=== PATIENT | male | born 1950 | race Caucasian/White ===

== ENCOUNTER 2021-09-18 18:21 | Inpatient (IN) | payer MEDICARE, BC ==
[~2021-09-18] VITALS: Ht 185.4 cm; Wt 136.1 kg
[2021-09-18] MEDS ORDERED: LUBI8CAP PO (18:50)
[2021-09-18] MEDS ORDERED: LOSA100T31 PO (18:50)
[2021-09-18] MEDS ORDERED: TERA10CA4 PO (18:50)
[2021-09-18] MEDS ORDERED: METO-357 PO (18:50)
--- NOTE | 2021-09-18 19:09 | NUR ---
REPORT GIVEN TO LOU CAROLINA.
[2021-09-18 19:19] LABS: HEMATOCRIT 38.5 % (36.7-47.1); MEAN CORPUSCULAR HEMOGLOBIN 28.4 uug (23.8-33.4); MEAN CORPUSCULAR VOLUME 83.6 fL (73.0-96.2); PLATELET COUNT (AUTO) 243 K/uL (152-348)
[2021-09-18 19:21] LABS: POTASSIUM 3.1 mmol/L (3.5-5.1)
[2021-09-18 19:34] LABS: BILIRUBIN,DIRECT 0.2 mg/dL (0.0-0.2); BILIRUBIN,TOTAL 0.6 mg/dL (0.2-1.0); TOTAL PROTEIN, SERUM 7.8 g/dL (6.4-8.2)
[2021-09-18 19:53] LABS: *BILIRUBIN,URIN NEGATIVE (NEGATIVE); *BLOOD, URINE 2+ (NEGATIVE); *COLOR,URINE YELLOW (YELLOW); *KETONES,URINE NEGATIVE (NEGATIVE); *UROBILINOGEN,URINE 0.2 E.U./dl (NORMAL); LEUKOCYTE ESTERASE ,URINE 1+ (NEGATIVE); NITRITE, URINE NEGATIVE (NEGATIVE); UGLUCOSE NEGATIVE (NEGATIVE)
[2021-09-18 19:57] LABS: *CLARITY,URINE TURBID (CLEAR)
[2021-09-18 20:00] LABS: BACTERIA,URINE MANY /HPF (NONE SEEN); SQUAMOUS EPITHELIAL CELL,UR MODERATE /HPF (NONE SEEN); WBC,URINE 80-100 /HPF (0-3)
--- NOTE | 2021-09-18 20:23 | NUR ---
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 WAITING FOR DR COLLIER TO CALL BACK.
--- NOTE | 2021-09-18 20:32 | NUR ---
DR WASHINGTON SPOKE WITH DR COLLIER WHO ACCEPT PATIENT TO TELE.
[2021-09-18] MEDS ORDERED: ACETAMINOPHEN ES 500 MG TABLET ONE (20:44)
[2021-09-18] MEDS ORDERED: ONDANSETRON 4 MG/2 ML VIAL ONE (20:44)
[2021-09-18] MEDS ORDERED: PIPERACILLIN/TAZOBACTAM/D5W 50 ML IV ONE (20:45)
[2021-09-18] MEDS ORDERED: PIPERACILLIN SODIUM/TAZOBACTAM 3.375 G in IV DEXTROSE 5% 50 ML IV ONE (20:45)
[2021-09-18] MEDS ORDERED: IV NS 1000 ML 1,000 ML IV ONE (20:45)
[2021-09-18] MEDS ORDERED: ACETAMINOPHEN ES 500 MG TABLET PO ONE (20:45)
[2021-09-18] MEDS ORDERED: ONDANSETRON 4 MG/2 ML VIAL IV ONE (20:45)
[2021-09-18] MEDS ORDERED: POTASSIUM CHLORIDE 20 MEQ TAB.PRT.SR PO ONE (21:00)
--- NOTE | 2021-09-18 21:15 | NUR ---
EKG ALREADY DONE EARLIER DR WASHINGTON D/C'ED 2ND EKG ORDER.
--- NOTE | 2021-09-18 22:08 | NUR ---
PATIENT HAD 66 TABLET OF PERCOCET IN HIS POSSESSION. PLACED IN MEDICATION ENVELOPE BAG ([id number]) CO CHECK WITH JERRI CAROLINA.
--- NOTE | 2021-09-18 22:14 | NUR ---
Admitted patient to Tele [facility].AALox4 .Dx of pyelonephritis .Denies abdominal pain at this time.On Ra at 98%.Denies SOB.Iv on right AC 20g patent and intact. Initial and body assessment done.No skin breakdown. Lower back noted with surgical scar.Per patient he had back surgery a month ago.Nsr on Tele.Notified of admission.Call light with in reach. VSS .Will continue to monitor.
--- NOTE | 2021-09-18 22:15 | NUR ---
Transfered patient to Tele 3rd floor via [facility] with no distress noted.
--- NOTE | 2021-09-18 22:19 | NUR ---
Admitted patient to Tele unit from ER via [facility].AALox4 .Dx of pyelonephritis .Denies abdominal pain at this time.On Ra at 98%.Denies SOB.Iv on right AC 20g patent and intact. Initial and body assessment done.No skin breakdown. Lower back noted with surgical scar.Per patient he had back surgery a month ago.Nsr on Tele.Notified of admission.Call light with in reach. VSS .Will continue to monitor.
[2021-09-18] MEDS ORDERED: POTASSIUM CHLORIDE 10 MEQ TAB.PRT.SR PO ONE (22:30)
[2021-09-18 22:50] VITALS: BP 123/70
[2021-09-18] MEDS ORDERED: IV 1/2NS 1000 ML 1,000 ML IV PRN (23:45)
[2021-09-18] MEDS ORDERED: ONDANSETRON 4 MG/2 ML VIAL IV PRN (23:45)
[2021-09-19 00:15] VITALS: BP 129/75
[2021-09-19] MEDS: ACETAMINOPHEN 325 MG TABLET PO PRN ×3 (02:30→14:33)
[2021-09-19] MEDS ORDERED: PIPERACILLIN/TAZO 2.25 G in IV DEXTROSE 5% 50 ML IV SCH ×2 (03:00→09:00)
[2021-09-19] MEDS: MORPHINE SULFATE 2 MG/1 ML DISP.SYRIN IV PRN ×2 (04:18→13:14)
[2021-09-19 04:30] VITALS: BP 140/75
[2021-09-19 06:51] LABS: HEMATOCRIT 35.4 % (36.7-47.1); MEAN CORPUSCULAR HEMOGLOBIN 28.2 uug (23.8-33.4); MEAN CORPUSCULAR VOLUME 83.3 fL (73.0-96.2); PLATELET COUNT (AUTO) 209 K/uL (152-348)
[2021-09-19] MEDS ORDERED: PANTOPRAZOLE SODIUM 40 MG TABLET.DR PO SCH (07:00)
[2021-09-19 07:20] LABS: BILIRUBIN,TOTAL 0.6 mg/dL (0.2-1.0); CREATININE 2.9 mg/dL (0.6-1.3); MAGNESIUM 2.4 mg/dL (1.8-2.4); PHOSPHOROUS 4.1 mg/dL (2.5-4.9); POTASSIUM 3.1 mmol/L (3.5-5.1)
[2021-09-19 07:50] LABS: THYROID STIMULATING HORMONE 0.538 mIU/mL (0.358-3.740)
[2021-09-19] MEDS ORDERED: POTASSIUM CHLORIDE 20 MEQ in IV 1/2NS 1000 ML 1,000 ML IV PRN (08:30)
[2021-09-19] MEDS ORDERED: TERAZOSIN HCL PO SCH (09:00)
[2021-09-19] MEDS ORDERED: TERAZOSIN 5 MG CAPSULE PO SCH (09:00)
[2021-09-19 12:03] VITALS: BP 114/61
[2021-09-19] MEDS ORDERED: DUTA0.5C PO (13:44)
[2021-09-19] MEDS ORDERED: ROSU20TA2 PO (13:44)
[2021-09-19] MEDS ORDERED: AMLO-212 PO (13:44)
[2021-09-19] MEDS ORDERED: HYDR25TA4 PO (13:45)
[2021-09-19] MEDS ORDERED: PIPERACILLIN SODIUM/TAZOBACTAM 3.375 G in IV DEXTROSE 5% 100 ML IV SCH (14:00)
[2021-09-19] MEDS ORDERED: VANCOMYCIN IV 2,000 MG in IV DEXTROSE 5% 500 ML IV ONE (16:00)
[2021-09-19 16:04] VITALS: BP 141/69
[2021-09-19 16:14] VITALS: BP 141/69
[2021-09-19] MEDS ORDERED: IV LACTATED RINGERS SOLUTION 1,000 ML IV PRN (16:30)
[2021-09-19] MEDS ORDERED: METOPROLOL SUCCINATE XL 50 MG TAB.SR.24H PO SCH (17:00)
--- NOTE | 2021-09-19 18:21 | NUR ---
Pt is a/o x 4, d/cd from telemetry at 0805. Saturating 97% on room air. MRSA (-), blood and urine culture (+) for gram negative rods. Pt [id number] IV antibiotics (zosyn and vanco). Pt was taken for an abdominal and pelvic CT without contrast in the am. Pt had a low grade fever of 99.0 at 0830 administered acetaminophen. Fever subsided then pt had chills and shaking at 1230, notified MD and readministered acetaminophen due to temp being 99.7. checked blood glucose to rule out hypoglycemia, resulted as 126. maintained symptoms with acetaminophen. pt is currently afebrile. Plan is to transfer to [facility] to be seen by his surgeon Dr. Stacy Maldonado. Pt will be picked up by [facility] ambulance transportation at 2000 tonight. Pt will be admitting to [address] [place] [address] room #2928. 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 Spoke to Carter CAROLINA for bed availability. Pt is aware of transfer.
--- NOTE | 2021-09-19 20:05 | NUR ---
[facility] here for mushroom picker. Pt vitals upon discharge are 148/70, HR 72, 98% room air. Family aware of transfer. All belongings at hand, discharge information provided to pt. Reports and imaging discs included in packet for transfer. Consent for transfer signed. IV in place per [facility] nurse. Gave report at 1937 to RN. Bed #1798 available for pt.
--- NOTE | 2021-09-19 20:30 | NUR ---
TRANSFERRED TO [facility] VIA [facility].
[2021-09-19] MEDS ORDERED: HEPARIN SODIUM,PORCINE 5,000 UNITS/ML VIAL SQ SCH (21:00)
[2021-09-19] MEDS ORDERED: ATORVASTATIN 40 MG TABLET PO SCH (21:00)
[2021-09-20] MEDS ORDERED: Medication Not On Formulary EA (Rosuvastatin Calcium (Crestor) 1 TAB) PO SCH (09:00)
[2021-09-20] MEDS ORDERED: DUTASTERIDE 0.5 MG CAPSULE PO SCH (09:00)
[2021-09-20] MEDS ORDERED: AMLODIPINE 5 MG TABLET PO SCH (09:00)
== END 2021-09-19 20:30 | disposition short-term general hospital (02) | DRG 862 ==
LOC: ER 18:21 → TELE3 22:04 → MEDSURG3 09-19 08:05
PROVIDERS: ADMIT Nurse Practitioner Family; ATTEND Nurse Practitioner Family
DX: T81.41XA Infection following a procedure, superficial incisional surgical site, initial encounter (principal); A41.9 Sepsis, unspecified organism; N17.0 Acute kidney failure with tubular necrosis; N12 Tubulo-interstitial nephritis, not specified as acute or chronic; E87.1 Hypo-osmolality and hyponatremia; L02.212 Cutaneous abscess of back [any part, except buttock and flank]; E87.6 Hypokalemia; E66.01 Morbid (severe) obesity due to excess calories; I10 Essential (primary) hypertension; I25.10 Atherosclerotic heart disease of native coronary artery without angina pectoris; N40.1 Benign prostatic hyperplasia with lower urinary tract symptoms; Z95.5 Presence of coronary angioplasty implant and graft; Z87.891 Personal history of nicotine dependence; Z68.39 Body mass index [BMI] 39.0-39.9, adult; Y83.8 Other surgical procedures as the cause of abnormal reaction of the patient, or of later complication, without mention of misadventure at the time of the procedure; Y92.009 Unspecified place in unspecified non-institutional (private) residence as the place of occurrence of the external cause; M25.78 Osteophyte, vertebrae; N41.9 Inflammatory disease of prostate, unspecified; Z20.822 Contact with and (suspected) exposure to COVID-19
CPT/HCPCS: 36415; 70030-TC; 71045; 83605; 83735; 84100; 84153; 84443; 85025; 85730; 87040; 87077; 87086; 93005; A4663; A9150; G0378; J2270; J2405; J2543; J3370; J3480; J3490; J7030; J7060; J7120

== ENCOUNTER 2023-04-18 06:16 | Emergency (ER) | payer MEDICARE, BC ==
[~2023-04-18] VITALS: Ht 185.4 cm; Wt 124.7 kg
[~2023-04-18 06:16] MED LIST: AMLO-212 PO; DUTA0.5C PO; METO-357 PO; ROSU20TA2 PO; TERA10CA4 PO
--- NOTE | 2023-04-18 06:26 | NUR ---
Patient placed in room 2A
--- NOTE | 2023-04-18 06:29 | NUR ---
Dr. Hatfield evaluating patient at bedside. MSE in progress.
[2023-04-18] MEDS ORDERED: ROSU20TA32 PO (06:36)
[2023-04-18] MEDS ORDERED: AMIO200T5 PO (06:36)
[2023-04-18] MEDS ORDERED: METO-357 PO (06:36)
[2023-04-18] MEDS ORDERED: LOSA1TAB39 PO (06:36)
[2023-04-18] MEDS ORDERED: ASPI81TA31 PO (06:36)
[2023-04-18] MEDS ORDERED: OXYC1TAB12 PO (06:36)
[2023-04-18] MEDS ORDERED: NITROGLYCERIN 0.4 MG/TAB BOTTLE SL ONE ×2 (06:45→06:47)
--- NOTE | 2023-04-18 06:45 | NUR ---
Patient refusing lab drawn. Educated patient on the importance of lab draws. Dr. Hatfield notified.
--- NOTE | 2023-04-18 06:48 | NUR ---
Patient rating 9/10 chest pain and pressure. Nitroglycerin 0.4mg sublingual administered per Dr. Hatfield's order.
--- NOTE | 2023-04-18 06:58 | NUR ---
Patient walked to the bathroom indepedently. Steady gait. Activity tolerated well.
--- NOTE | 2023-04-18 07:00 | NUR ---
Patient does not wish to proceed with medical care recommended by Dr. Hatfield. Patient given information related to possible complications, up to and including , which could occur as a result of leaving the hospital at this time. Patient verbalizes understanding of risks involved due to leaving against medical advice. Patient has signed AMA form.
[2023-04-18 07:06] VITALS: BP 170/81; TEMP 98.7; O2SAT 98
== END 2023-04-18 07:07 | disposition left against medical advice (07) ==
LOC: ER 06:16
DX: R07.89 Other chest pain (principal); I25.10 Atherosclerotic heart disease of native coronary artery without angina pectoris; Z88.8 Allergy status to other drugs, medicaments and biological substances; Z79.82 Long term (current) use of aspirin; Z79.899 Other long term (current) drug therapy
CPT/HCPCS: 93005; A4663

== ENCOUNTER 2023-11-21 05:33 | Emergency (ER) | payer MEDICARE, BC ==
[~2023-11-21] VITALS: Ht 182.9 cm; Wt 126.1 kg
[~2023-11-21 05:33] MED LIST changes: +AMIO200T5 PO; -AMLO-212 PO; +ASPI81TA31 PO; -DUTA0.5C PO; +LOSA1TAB39 PO; +OXYC1TAB12 PO; -ROSU20TA2 PO; +ROSU20TA32 PO; -TERA10CA4 PO
[2023-11-21] MEDS ORDERED: TERA2CAP4 PO (05:55)
[2023-11-21] MEDS ORDERED: CIPR500T5 PO (07:31)
[2023-11-21] MEDS ORDERED: levoFLOXacin 750 MG TABLET ONE (07:32)
[2023-11-21 07:33] LABS: *BILIRUBIN,URIN NEGATIVE (NEGATIVE); *BLOOD, URINE 2+ (NEGATIVE); *CLARITY,URINE CLEAR (CLEAR); *COLOR,URINE YELLOW (YELLOW); *KETONES,URINE NEGATIVE (NEGATIVE); *PROTEIN,URINE NEGATIVE (NEGATIVE); *UROBILINOGEN,URINE 0.2 E.U./dl (NORMAL); LEUKOCYTE ESTERASE ,URINE 1+ (NEGATIVE); NITRITE, URINE POSITIVE (NEGATIVE); PH,URINE 5.5 (5.0-8.0); UGLUCOSE NEGATIVE (NEGATIVE)
[2023-11-21] MEDS: levoFLOXacin 750 MG TABLET PO ONE (07:34)
[2023-11-21 07:39] LABS: WBC,URINE 20-50 /HPF (0-3)
[2023-11-21 07:40] LABS: BACTERIA,URINE MANY /HPF (NONE SEEN); SQUAMOUS EPITHELIAL CELL,UR FEW /HPF (NONE SEEN)
[2023-11-21 07:45] VITALS: BP 122/80; TEMP 98; O2SAT 99
== END 2023-11-21 07:46 | disposition home or self-care (01) ==
LOC: ER 05:34
DX: N39.0 Urinary tract infection, site not specified (principal); R33.9 Retention of urine, unspecified; N40.0 Benign prostatic hyperplasia without lower urinary tract symptoms; Z98.890 Other specified postprocedural states; Z79.899 Other long term (current) drug therapy; Z88.1 Allergy status to other antibiotic agents
CPT/HCPCS: 51702; A4606; A4663

== ENCOUNTER 2023-12-13 21:00 | Emergency (ER) | payer MEDICARE, BC ==
[~2023-12-13] VITALS: Ht 182.9 cm; Wt 127.0 kg
[~2023-12-13 21:00] MED LIST changes: +CIPR500T5 PO; +TERA2CAP4 PO
[2023-12-14] MEDS ORDERED: CIPR500S2 PO (00:22)
[2023-12-14] MEDS: CIPROFLOXACIN HCL 250 MG TABLET PO ONE (00:31)
[2023-12-14] MEDS ORDERED: CIPROFLOXACIN HCL 250 MG TABLET ONE (00:33)
[2023-12-14 00:39] VITALS: BP 166/90; TEMP 98; O2SAT 98
== END 2023-12-14 00:40 | disposition home or self-care (01) ==
LOC: ER 21:03
DX: N39.0 Urinary tract infection, site not specified (principal); R33.9 Retention of urine, unspecified; R03.0 Elevated blood-pressure reading, without diagnosis of hypertension; N40.0 Benign prostatic hyperplasia without lower urinary tract symptoms; Z98.890 Other specified postprocedural states; Z79.899 Other long term (current) drug therapy; Z88.1 Allergy status to other antibiotic agents
CPT/HCPCS: 51702; A4606; A4663

== ENCOUNTER 2023-12-14 13:45 | Emergency (ER) | payer MEDICARE, BC ==
[~2023-12-14] VITALS: Ht 182.9 cm; Wt 127.0 kg
[~2023-12-14 13:45] MED LIST changes: +CIPR500S2 PO
[2023-12-14] MEDS ORDERED: levoFLOXacin 750 MG TABLET ONE (15:18)
[2023-12-14] MEDS: levoFLOXacin 750 MG TABLET PO ONE (15:40)
[2023-12-14 15:50] LABS: *BILIRUBIN,URIN NEGATIVE (NEGATIVE); *BLOOD, URINE 3+ (NEGATIVE); *CLARITY,URINE SLIGHTLY CLOUDY (CLEAR); *COLOR,URINE YELLOW (YELLOW); *KETONES,URINE NEGATIVE (NEGATIVE); *PROTEIN,URINE 2+ (NEGATIVE); *UROBILINOGEN,URINE 0.2 E.U./dl (NORMAL); LEUKOCYTE ESTERASE ,URINE 1+ (NEGATIVE); NITRITE, URINE NEGATIVE (NEGATIVE); PH,URINE 5.5 (5.0-8.0); UGLUCOSE NEGATIVE (NEGATIVE)
[2023-12-14 16:07] LABS: BACTERIA,URINE MODERATE /HPF (NONE SEEN); RBC,URINE 80-100 /HPF (0-3); SQUAMOUS EPITHELIAL CELL,UR FEW /HPF (NONE SEEN); WBC,URINE 50-80 /HPF (0-3)
[2023-12-14 16:17] VITALS: BP 139/81; O2SAT 95
== END 2023-12-14 16:21 | disposition home or self-care (01) ==
LOC: ER 13:45
DX: N39.0 Urinary tract infection, site not specified (principal); R33.9 Retention of urine, unspecified; N40.0 Benign prostatic hyperplasia without lower urinary tract symptoms; Z79.82 Long term (current) use of aspirin; Z98.890 Other specified postprocedural states; Z79.899 Other long term (current) drug therapy; Z88.1 Allergy status to other antibiotic agents
CPT/HCPCS: 51702; A4606; A4663